=== PATIENT | female | born 1955 | race Caucasian/White ===

== ENCOUNTER 2017-03-14 19:02 | Emergency (ER) | payer BC ==
[2017-03-14 19:08] VITALS: RESP 18
--- NOTE | 2017-03-14 19:42 | C.PDOC ---
History Of Present Illness 61 y/o male c/o dizziness, vomiting, and ringing to the right ear area that began tonight. Symptoms is worse with head movement. Patient also reports bilateral ankle pain for 10 days. Denies injury. No abdominal pain, fever, or chill. Time Seen by Provider: 03/14/17 19:42 Chief Complaint (Nursing): Dizziness/Lightheaded History Per: Patient History/Exam Limitations: no limitations Onset/Duration Of Symptoms: Hrs (tonight) Current Symptoms Are (Timing): Still Present Fall Associated With With Symptoms: No Severity: Mild Recent travel outside of the [place]: No Additional History Per: Patient Past Medical History Reviewed: Historical Data, Nursing Documentation, Vital Signs Vital Signs: Last Vital Signs Temp 97.5 F L 03/14/17 22:58 Pulse 60 03/14/17 22:58 Resp 18 03/14/17 22:58 BP 104/66 03/14/17 22:58 Pulse Ox 99 03/14/17 22:58 Family History: States: Unknown Family Hx Review Of Systems Except As Marked, All Systems Reviewed And Found Negative. Constitutional: Negative for: Fever, Chills, Other (Injury) ENT: Positive for: Other (Ringing to the right ear ) Gastrointestinal: Positive for: Vomiting. Negative for: Abdominal Pain Musculoskeletal: Positive for: Foot Pain (Bilateral ankle pain) Neurological: Positive for: Dizziness Physical Exam - Physical Exam Appears: Non-toxic, No Acute Distress Skin: Warm, Dry Head: Atraumatic, Normacephalic Eye(s): bilateral: Normal Inspection, PERRL, EOMI Ear(s): Bilateral: Normal Neck: Normal ROM, Supple, Other (No rigidity) Cardiovascular: Rhythm Regular, No Murmur Respiratory: Normal Breath Sounds, No Rales, No Rhonchi, No Wheezing Gastrointestinal/Abdominal: Soft, No Tenderness Extremity: Tenderness (Bilateral knee tenderness), Capillary Refill (<2secs), No Deformity, Swelling (Mild bilateral ankle swelling), Other (No redness) Pulses: Left Dorsalis Pedis: Normal, Right Dorsalis Pedis: Normal Neurological/Psych: Oriented x3, Normal Speech, Normal Cognition, Normal Cranial Nerves, Normal Motor, Normal Sensation, Other (No focal deficit) Gait: Steady ED Course And Treatment - Laboratory Results Result Diagrams: 03/14/17 20:01 03/14/17 20:01 ECG: Interpreted By Me, Viewed By Me ECG Rhythm: Sinus Rhythm ECG Interpretation: Normal, No Acute Changes Interpretation Of ECG: NSR, normal tracings. Rate From EC O2 Sat by Pulse Oximetry: 100 (RA) Pulse Ox Interpretation: Normal - CT Scan/US CT Head Other Rad Studies (CT/US): Interpreted By Me, Read By Radiologist, Radiology Report Reviewed CT/US Interpretation: EXAM: CT Head Without Intravenous Contrast. CLINICAL HISTORY: 61 years old, female; Condition or disease; Headache. TECHNIQUE: Axial computed tomography images of the head/brain without intravenous contrast. All CT scans at. this facility use one or more dose reduction techniques, viz.: automated exposure control; ma/kV. adjustment per patient size (including targeted exams where dose is matched to indication; i.e. head); . or iterative reconstruction technique. COMPARISON: No relevant prior studies available. FINDINGS: Brain: No acute intracranial hemorrhage. Age- appropriate periventricular white matter disease. No. edema.Basal ganglia calcifications are present. Ventricles: Age-appropriate ventriculomegaly. Bones: No acute displaced fracture. Sinuses: Unremarkable as visualized. No acute sinusitis. Mastoid air cells: Unremarkable as visualized. No mastoid effusion. IMPRESSION: No acute intracranial hemorrhage, or suspicious mass effect. Basal ganglia mineralization is prominent considering the patient's age. Still, this may be physiologic. Other considerations are prior infection, thyroid/parathyroid disease or inherited metabolic conditions. Medical Decision Making Medical Decision Making: Plans: * CT Head w/o * EKG * Blood labs * XRAY bilateral ankles * Toradol * Reglan * UA Disposition Counseled Patient/Family Regarding: Diagnosis - Disposition Referrals: [facility] at [facility] [Outside] Disposition: HOME/ ROUTINE Disposition Time: 22:43 Condition: STABLE Prescriptions: Meclizine [Antivert] 12.5 mg PO Q6 #20 tab Naproxen 375 mg PO TIDPC #20 tablet Instructions: Vertigo (ED), Arthritis (ED) Forms: Gen Discharge Inst Cambodian, [employer] (Peruvian) Print Language: ENGLISH - Clinical Impression Clinical Impression: Vertigo, Arthritis - Scribe Statement The provider has reviewed the documentation as recorded by the Scribe Lele louise All medical record entries made by the Scribe were at my direction and personally dictated by me. I have reviewed the chart and agree that the record accurately reflects my personal performance of the history, physical exam, medical decision making, and the department course for this patient. I have also personally directed, reviewed, and agree with the discharge instructions and disposition.
[2017-03-14 20:05] LABS: BASO # 0.1 K/uL (0.0-0.2); BASO % 0.6 % (0.0-2.0); EOS # 0.2 K/uL (0.0-0.7); HEMATOCRIT 36.8 % (34.0-47.0); LYMPH # 1.9 K/uL (1.0-4.3); LYMPH % 21.3 % (20.0-40.0); MEAN CELL VOLUME 91.5 fL (81.0-99.0); MEAN CORPUSCULAR HEMOGLOBIN 30.7 pg (27.0-31.0); MEAN CORPUSCULAR HGB CONC 33.5 g/dL (33.0-37.0); MEAN PLATELET VOLUME 8.9 fL (7.2-11.7); MONO % 11.2 % (0.0-10.0); RED CELL DISTRIBUTION WIDTH 13.7 % (11.5-14.5)
[2017-03-14 20:16] LABS: CHLORIDE 102 mmol/L (98-107)
[2017-03-14 20:17] LABS: POTASSIUM 3.9 mmol/L (3.6-5.2); SODIUM 136 mmol/L (132-148)
[2017-03-14 20:19] LABS: ALB/GLOB RATIO 1.1 (1.0-2.1); ALKALINE PHOSPHATASE 93 U/L (38-126); ALT/SGPT 31 U/L (9-52); AST/SGOT 17 U/L (14-36); BILIRUBIN,TOTAL 0.4 mg/dL (0.2-1.3); BLOOD UREA NITROGEN 15 mg/dL (7-17); CARBON DIOXIDE 25 mmol/L (22-30); GFR AFRICAN-AMERICAN > 60; GLUCOSE,RANDOM 100 mg/dL (65-105); TOTAL PROTEIN 7.2 g/dL (6.3-8.3)
[2017-03-14 20:20] LABS: URIC ACID 4.7 mg/dL (2.2-7.5)
[2017-03-14 20:29] LABS: RBC URINE 2 /hpf (0-3); URINE BACTERIA RARE (<OCC); URINE BILIRUBIN NEGATIVE (NEGATIVE); URINE BLOOD NEGATIVE (NEGATIVE); URINE COLOR Yellow (YELLOW); URINE GLUCOSE (UA) NORMAL (Normal); URINE KETONE NEGATIVE (NEGATIVE); URINE PROTEIN NEGATIVE (NEGATIVE); URINE UROBILINOGEN NORMAL mg/dL (0.2-1.0); WBC URINE 9 /hpf (0-5)
[2017-03-14 20:33] LABS: URINE LEUKOCYTE ESTERASE 1+ Leu/uL (Negative)
--- NOTE | 2017-03-14 21:55 | CT ---
EXAM: CT Head Without Intravenous Contrast CLINICAL HISTORY: 61 years old, female; Condition or disease; Headache TECHNIQUE: Axial computed tomography images of the head/brain without intravenous contrast. All CT scans at this facility use one or more dose reduction techniques, viz.: automated exposure control; ma/kV adjustment per patient size (including targeted exams where dose is matched to indication; i.e. head); or iterative reconstruction technique. COMPARISON: No relevant prior studies available. FINDINGS: Brain: No acute intracranial hemorrhage. Age-appropriate periventricular white matter disease. No edema.Basal ganglia calcifications are present. Ventricles: Age-appropriate ventriculomegaly. Bones: No acute displaced fracture. Sinuses: Unremarkable as visualized. No acute sinusitis. Mastoid air cells: Unremarkable as visualized. No mastoid effusion. IMPRESSION: No acute intracranial hemorrhage, or suspicious mass effect. Basal ganglia mineralization is prominent considering the patient's age. Still, this may be physiologic. Other considerations are prior infection, thyroid/parathyroid disease or inherited metabolic conditions.
[2017-03-14 22:59] VITALS: BP 104/66; PULSE 60; TEMP 97.5
--- NOTE | 2017-03-15 08:20 | RAD ---
PROCEDURE: AP oblique and lateral views of the ankles HISTORY: edie. ankle swelling/ pain COMPARISON: No prior similar study for comparison TECHNIQUE: AP lateral and oblique views of both ankles were obtained. FINDINGS: No evidence of acute fracture or dislocation. The ankle mortise is symmetrical. The dome of the talar bone is intact. Mild to moderate soft tissue swelling seen around the ankle bilaterally. IMPRESSION: No evidence of acute pathology. Soft tissue swelling around the ankles.
[2017-03-15 08:41] VITALS: O2SAT 100
--- NOTE | 2017-03-16 12:24 | CARD ---
APPROVED REPORT EKG Measurement Heart [id number] <Conclusion> Normal sinus rhythm Normal ECG
== END 2017-03-14 22:59 | disposition home or self-care (01) ==
LOC: C.ER 19:02
DX: R42 Dizziness and giddiness (principal); M13.872 Other specified arthritis, left ankle and foot; M13.871 Other specified arthritis, right ankle and foot
CPT/HCPCS: 70450; 73610; 80053; 81001; 84550; 85025; 93005; 96374; 96375; 99285; J1885; J2765

== ENCOUNTER 2018-08-23 15:16 | Outpatient (CLI) | payer MEDICAID | END 2018-08-23 15:17 | disposition home or self-care (01) | LOC: C.RADH 15:16 | DX: G57.90 Unspecified mononeuropathy of unspecified lower limb (principal) ==